=== PATIENT | female | born 1975 | race Hispanic/Latino ===

== ENCOUNTER 2017-06-02 14:03 | Emergency (ER) | payer MEDICARE ==
--- NOTE | 2017-06-02 15:15 | Emergency Department Report ---
Chief Complaint: GI Bleed Stated Complaint: RECTAL BLEEDING Time Seen by Provider: 06/02/17 14:31 - HPI History of Present Illness: Patient is a 42-year-old female who is presenting with bleeding. The original assessment from triage was that she had a GI bleed. However the patient and her sitter from the psychiatric facility of which she has come from state that she is having vaginal bleeding. Patient states that O week to 2 weeks ago she had a normal menses but is having vaginal bleeding currently. Patient has some mid abdominal cramping. Cramping is approximately a 5 out of 10 in severity. Patient denies dysuria nausea vomiting diarrhea. - Exam Vital Signs: Vital Signs 06/02/17 14:08 Temperature 98.8 F Pulse Rate 109 H Respiratory 18 Rate Blood Pressure 108/68 O2 Sat by Pulse 100 Oximetry Physical Exam: Focused physical exam patient has periumbilical abdominal tenderness MSE screening note: Focused history and physical exam performed. Due to findings the following was ordered: Because the patient is a poor historian secondary to her mental state ultrasounds have been ordered to rule out fibroids ovarian cysts ovarian torsion. CBC has also been ordered since this is her second episode of bleeding within the last month and urinalysis prior to tests been ordered as well ED Disposition for MSE Condition: Stable Referrals: NAT LOVE MD [Primary Care Provider] - 3-5 Days
[2017-06-02 15:50] LABS: Basophils % (Auto) 0.3 % (0.0-1.8); Hematocrit 28.8 % (30.3-42.9); Hemoglobin 9.7 gm/dl (10.1-14.3); Mean Corpuscular HGB Conc 34 % (30-34); Mean Corpuscular Hemoglobin 28 pg (28-32); Mean Corpuscular Volume 82 fl (79-97); Platelet Count 399 K/mm3 (140-440); Red Blood Count 3.52 M/mm3 (3.65-5.03); White Blood Count 6.8 K/mm3 (4.5-11.0)
[2017-06-02 17:09] LABS: Bacteria,Urine 1+ /HPF (Negative); Bilirubin,Urine NEG (Negative); Blood,Urine LG (Negative); Ketones,Urine NEG (Negative); Leukocyte Esterase,Urine SM (Negative); Mucus,Urine FEW /HPF; Nitrite,Urine NEG (Negative); Protein,Urine <15 mg/dL mg/dL (Negative); Urobilinogen,Urine < 2.0 mg/dL (<2.0)
--- NOTE | 2017-06-02 18:53 | Ultrasound Report ---
FINAL REPORT EXAM: US PELVIC COMPLETE HISTORY: abnl vag bleed TECHNIQUE: Ultrasound pelvis transabdominal PRIORS: None. FINDINGS: The uterus measures 8.1 x 3.0 x 3.9 centimeters Endometrial thickness is 0.7 centimeters No focal myometrial abnormality is identified Right ovary is 3.6 x 1.1 x 2.1 centimeters No abnormal mass or cyst identified The left ovary was not visualized sonographically IMPRESSION: Left ovary not identified Normal sonographic appearance of the right ovary and uterus
[2017-06-02 20:23] VITALS: BP 130/82
--- NOTE | 2017-06-02 20:29 | Emergency Department Report ---
ED Female HPI - General Chief complaint: GI Bleed Stated complaint: RECTAL BLEEDING Time Seen by Provider: 06/02/17 14:31 Source: patient Mode of arrival: Ambulatory Limitations: No Limitations - History of Present Illness Initial comments: This is a 42-year-old female accompanied by psych caregiver nontoxic, well nourished in appearance, no acute signs of distress presents to the ED with c/o of vaginal bleeding. Caregiver stated she just had a menstrual cycle and still may be having it. Denies any other complaints. Patient was screen and evaluated by Dr. Schwarz. See Dr. Schwarz HPI notes. Patient and psych caregiver denies changes of HPI. Dr. Schwarz ordered laboratory and pending. Patient is a poor historical due to psych history. Caregiver was there to help. MD Complaint: vaginal bleeding -: days(s) (2) Radiation: non-radiating Severity: mild Severity scale (0 -10): 4 Quality: cramping Consistency: constant Improves with: none Worsens with: none Are you Now?: No Associated Symptoms: denies other symptoms, vaginal bleeding. denies: vaginal discharge, abdominal pain, nausea/vomiting, fever/chills, headaches, loss of appetite, dysuria, hematuria, rash, seizure, shortness of breath, syncope, weakness - Related Data Sexually active: No Previous Rx's Medication Instructions Recorded Last Taken Type Ciprofloxacin [Ciprofloxacin ORAL 500 mg PO Q12H #14 ml 06/02/17 Unknown Rx LIQ] Allergies Allergy/AdvReac Type Severity Reaction Status Date / Time Penicillins Allergy Unknown Verified 06/02/17 14:13 Sulfa (Sulfonamide Allergy Unknown Verified 06/02/17 14:12 Antibiotics) ED Review of Systems ROS: Stated complaint: RECTAL BLEEDING Other details as noted in HPI Constitutional: denies: chills, fever Eyes: denies: eye pain, eye discharge, vision change ENT: denies: ear pain, throat pain Respiratory: denies: cough, shortness of breath, wheezing Cardiovascular: denies: chest pain, palpitations Endocrine: no symptoms reported Gastrointestinal: denies: abdominal pain, nausea, diarrhea Genitourinary: hematuria. denies: urgency, dysuria, discharge Musculoskeletal: denies: back pain, joint swelling, arthralgia Skin: denies: rash, lesions Neurological: denies: headache, weakness, paresthesias Psychiatric: denies: anxiety, depression Hematological/Lymphatic: denies: easy bleeding, easy bruising ED Past Medical Hx - Past Medical History Hx Psychiatric Treatment: Yes (schizophrenia) - Surgical History Additional Surgical History: laparoscopy - Social History Smoking Status: Never Smoker Substance Use Type: None - Medications Home Medications: Home Medications Medication Instructions Recorded Confirmed Last Taken Type Ciprofloxacin [Ciprofloxacin ORAL 500 mg PO Q12H #14 ml 06/02/17 Unknown Rx LIQ] ED Physical Exam - General Limitations: No Limitations General appearance: alert, in no apparent distress - Head Head exam: Present: atraumatic, normocephalic - Eye Eye exam: Present: normal appearance Pupils: Present: normal accommodation - ENT ENT exam: Present: normal exam, normal orophraynx, mucous membranes moist, TM's normal bilaterally, normal external ear exam - Neck Neck exam: Present: normal inspection, full ROM. Absent: tenderness, meningismus, lymphadenopathy, thyromegaly - Respiratory Respiratory exam: Present: normal lung sounds bilaterally. Absent: respiratory distress, wheezes, rales, rhonchi, stridor, chest wall tenderness, accessory muscle use, decreased breath sounds, prolonged expiratory - Cardiovascular Cardiovascular Exam: Present: regular rate, normal rhythm, normal heart sounds. Absent: irregular rhythm, systolic murmur, diastolic murmur, rubs, gallop - GI/Abdominal GI/Abdominal exam: Present: soft, normal bowel sounds. Absent: distended, tenderness, guarding, rebound, rigid, diminished bowel sounds - Expanded GI/Abdominal Exam Expanded GI/Abdominal exam: Absent: psoas sign, obturator sign, heel tap sign, Khan's sign, Rovsing's sign, tenderness at Mcburney's Point, ascites - Rectal Rectal exam: Present: deferred - External exam: Present: normal external exam, other (chaperoned Deysi refrigerator glazier present during exam). Absent: erythema, swelling, lesions, lacerations, ecchymosis, bleeding Speculum exam: Present: normal speculum exam, other (chaperoned Deysi refrigerator glazier present during exam). Absent: erythema, vaginal discharge, cervical discharge, vaginal bleeding, foreign body, tissue, laceration Bi-manual exam: Present: normal bi-manual exam, other (chaperoned Deysi refrigerator glazier present during exam). Absent: cervical motion tendernes, adnexal tenderness, adnexal mass, uterine enlargement, uterine tenderness - Extremities Exam Extremities exam: Present: normal inspection, full ROM, normal capillary refill. Absent: tenderness, pedal edema, joint swelling, calf tenderness - Back Exam Back exam: Present: normal inspection, full ROM. Absent: tenderness, CVA tenderness (R), CVA tenderness (L), muscle spasm, paraspinal tenderness, vertebral tenderness, rash noted - Neurological Exam Neurological exam: Present: alert, oriented X3, CN II-XII intact, normal gait, reflexes normal - Psychiatric Psychiatric exam: Present: normal affect, normal mood - Skin Skin exam: Present: warm, dry, intact, normal color. Absent: rash ED Course Vital Signs 06/02/17 06/02/17 14:08 20:22 Temperature 98.8 F 98.9 F Pulse Rate 109 H 114 H Respiratory 18 18 Rate Blood Pressure 108/68 Blood Pressure 130/82 [Left] O2 Sat by Pulse 100 96 Oximetry - Reevaluation(s) Reevaluation #1: 06/02/17 20:33 Patient is speaking in full sentences with no signs of distress noted. - Consultations Consultation #1: 06/02/17 20:34 Patient has been consulted with Dr. Schwarz about patient history, physical exam , and labs and examined and screened and agrees distress plan for care. ED Medical Decision Making - Lab Data Result diagrams: 06/02/17 15:33 - Medical Decision Making This is a 42-year-old female that presents with UTI. Patient is stable and was examined by me and Dr. Schwarz. Patient is screened by Dr. Schwarz. See HPI MSE Dr. Pagan noted. As per patient, no physical changes or HPI changes. UA obtained with signs of UTI. No CVA tenderness. CBC obtained. Dr. Schwarz reveiwed results and stated discharge with f/u. Ultrasound obtained and dictated by radiologist within normal limits. Patient is d/c with cipro due to allergies. Caregiver and patient was instructed Follow-up with a primary care doctor in 3-5 days or if symptoms worsen and continue return to emergency room as soon as possible. At time time of discharge, the patient does not seem toxic or ill in appearance. No acute signs of distress noted. Patient agrees to discharge treatment plan of care. No further questions noted by the patient. Critical care attestation.: If time is entered above; I have spent that time in minutes in the direct care of this critically ill patient, excluding procedure time. ED Disposition Clinical Impression: UTI (urinary tract infection) Qualifiers: Urinary tract infection type: site unspecified Hematuria presence: with hematuria Qualified Code(s): N39.0 - Urinary tract infection, site not specified ; R31.9 - Hematuria, unspecified; R31.9 - Hematuria, unspecified Disposition: TO HOME OR SELFCARE Is pt being admited?: No Does the pt Need Aspirin: No Condition: Stable Instructions: Urinary Tract Infection in Women (ED), Ciprofloxacin (By mouth) Additional Instructions: Follow-up with a primary care doctor in 3-5 days or if symptoms worsen and continue return to emergency room as soon as possible. Prescriptions: Ciprofloxacin [Ciprofloxacin ORAL LIQ] 500 mg PO Q12H #14 ml Referrals: NAT LOVE MD [Primary Care Provider] - 3-5 Days ALVARO SOLOMON MD [Staff Physician] - 3-5 Days [facility] [Outside] - 3-5 Days [facility] [Outside] - 3-5 Days
== END 2017-06-02 20:47 | disposition home or self-care (01) ==
LOC: ED 14:03
DX: N39.0 Urinary tract infection, site not specified (principal); Z88.0 Allergy status to penicillin; Z88.2 Allergy status to sulfonamides
CPT/HCPCS: 36415; 76856; 81001; 81025; 85025; 99284

== ENCOUNTER 2017-06-08 13:28 | Inpatient (IN) | payer MEDICARE ==
[2017-06-08 16:41] LABS: Eosinophils % (Auto) 3.2 % (0.0-4.3); Hematocrit 26.2 % (30.3-42.9); Hemoglobin 8.4 gm/dl (10.1-14.3); Mean Corpuscular HGB Conc 32 % (30-34); Mean Corpuscular Hemoglobin 26 pg (28-32); Platelet Count 432 K/mm3 (140-440); Red Blood Count 3.17 M/mm3 (3.65-5.03); Red Cell Distribution Width 16.2 % (13.2-15.2); White Blood Count 6.9 K/mm3 (4.5-11.0)
[2017-06-08 16:48] LABS: Basophils % (Auto) 1.3 % (0.0-1.8); Diff Status Complete; Mean Corpuscular Volume 83 fl (79-97)
[2017-06-08 17:08] LABS: Chloride 100.8 mmol/L (98-107); Potassium 3.4 mmol/L (3.6-5.0); Sodium 141 mmol/L (137-145)
[2017-06-08 17:09] LABS: Alanine Aminotransferase 10 units/L (7-56); Albumin 2.3 g/dL (3.9-5); Albumin/Globulin Ratio 0.7 %; Alkaline Phosphatase 77 units/L (35-129); Anion Gap 18 mmol/L; BUN/Creatinine Ratio 15; Bilirubin,Total < 0.20 mg/dL (0.1-1.2); Blood Urea Nitrogen 12 mg/dL (7-17); Calcium 7.8 mg/dL (8.4-10.2); Carbon Dioxide 26 mmol/L (22-30); Glucose 102 mg/dL (65-100); Total Protein 5.7 g/dL (6.3-8.2)
[2017-06-08] MEDS ORDERED: NACL 0.9% 1000 ML 1,000 ML IV ONE (22:45)
[2017-06-08] MEDS ORDERED: K-DUR PO ONE (22:46)
--- NOTE | 2017-06-08 23:00 | Emergency Department Report ---
ED Female HPI - General Chief complaint: Vaginal Bleeding Stated complaint: VAGINAL BLEEDING Time Seen by Provider: 06/08/17 22:12 Source: patient Mode of arrival: Ambulatory Limitations: No Limitations - History of Present Illness Initial comments: 42 yo female with the past medical history of schizophrenia presents to the hospital with vaginal bleeding for a couple of days. Patient has periods of light flow intermixed with heavy vaginal flow of blood. Patient was seen and evaluated here on the for the same and had unremarkable ultrasound. As per exam no blood was noted in the vagina and patient was sent back to [place] with diagnosis of UTI. Bleeding has continued, H&H has decreased, therefore patient was sent to the ER for further evaluation. Patient denies rectal bleeding. Patient states he takes Q3 months and thinks she is overdue for another shot. - Related Data Previous Rx's Medication Instructions Recorded Last Taken Type Ciprofloxacin [Ciprofloxacin ORAL 500 mg PO Q12H #14 ml 06/02/17 Unknown Rx LIQ] Allergies Allergy/AdvReac Type Severity Reaction Status Date / Time Penicillins Allergy Unknown Verified 06/08/17 13:40 Sulfa (Sulfonamide Allergy Unknown Verified 06/08/17 13:40 Antibiotics) ED Review of Systems ROS: Stated complaint: VAGINAL BLEEDING Other details as noted in HPI Comment: All other systems reviewed and negative Other: Constitutional: No fevers chills Eyes: No eye pain visual changes ENT: No ear pain or throat pain Neck: Denies pain Respiratory: Denies cough wheezing shortness of breath Cardiovascular: Denies chest pain, palpitations, syncope GI: Denies abdominal pain : Denies dysuria Musculoskeletal: Denies back pain Skin: Denies rash, lesions, erythema Neurologic: Denies headache, numbness, weakness Psychiatric: Denies suicidal ideation, hallucinations ED Past Medical Hx - Past Medical History Previous Medical History?: Yes Hx Psychiatric Treatment: Yes (schizophrenia) - Surgical History Past Surgical History?: Yes Additional Surgical History: laparoscopy - Social History Smoking Status: Never Smoker Substance Use Type: None - Medications Home Medications: Home Medications Medication Instructions Recorded Confirmed Last Taken Type Ciprofloxacin [Ciprofloxacin ORAL 500 mg PO Q12H #14 ml 06/02/17 Unknown Rx LIQ] ED Physical Exam - General Limitations: No Limitations - Other Other exam information: General: No limitations, patient is alert in no acute distress Head exam: Atraumatic, normocephalic Eyes exam: Normal appearance, ENT: Moist mucous membrane, normal oropharynx Neck exam: Normal inspection, full range of motion, no meningismus nontender Respiratory exam: Clear to auscultation bilateral, no wheezes, rales, crackles Cardiovascular: Normal rate and rhythm, normal heart sounds Abdomen: Soft, nondistended, and nontender, with normal bowel sounds, no rebound, or guarding : no blood in the vag vault, no cmt or adenxal tenderness rectal: External hemorrhoid noted at 7 o'clock position with a visible clot at the site. No active bleeding but dry blood noted at anal opening. Hemorrhoid tissue pink. Rectal exam has brown stool without melena. Guaiac positive likely secondary to blood present anal area Extremity: Full range of motion normal inspection no deformity Back: Normal Inspection, full range of motion, no tenderness Neurologic: Alert, oriented x3, cranial nerves intact, no motor or sensory deficit Psychiatric: normal affect, normal mood Skin: Warm, dry, intact ED Course Vital Signs 06/08/17 06/08/17 06/09/17 13:40 17:52 00:33 Temperature 98.2 F 99.4 F Pulse Rate 119 H 123 H Respiratory 18 14 16 Rate Blood Pressure 110/62 Blood Pressure 119/73 [Right] O2 Sat by Pulse 99 100 99 Oximetry - Reevaluation(s) Reevaluation #1: 06/08/17 23:29 ivf, ekg pending - Consultations Consultation #1: 06/08/17 23:29 case d/w Dr Grider, rec bowel prep for flex sig. will consult ED Medical Decision Making - Lab Data Result diagrams: 06/08/17 13:58 06/08/17 13:58 Lab Results 06/08/17 06/08/17 06/08/17 Range/Units 13:58 13:58 13:58 WBC 6.9 (4.5-11.0) K/mm3 RBC 3.17 L (3.65-5.03) M/mm3 Hgb 8.4 L (10.1-14.3) gm/dl Hct 26.2 L (30.3-42.9) % MCV 83 (79-97) fl MCH 26 L (28-32) pg MCHC 32 (30-34) % RDW 16.2 H (13.2-15.2) % Plt Count 432 (140-440) K/mm3 Lymph % (Auto) 20.0 (13.4-35.0) % [place] % (Auto) 9.4 H (0.0-7.3) % Eos % (Auto) 3.2 (0.0-4.3) % Baso % (Auto) 1.3 (0.0-1.8) % Lymph # 1.4 (1.2-5.4) K/mm3 [place] # 0.6 (0.0-0.8) K/mm3 Eos # 0.2 (0.0-0.4) K/mm3 Baso # 0.1 (0.0-0.1) K/mm3 Add Manual Diff Complete Seg Neutrophils % 66.1 (40.0-70.0) % Seg Neutrophils # 4.5 (1.8-7.7) K/mm3 Sodium 141 (137-145) mmol/L Potassium 3.4 L (3.6-5.0) mmol/L Chloride 100.8 (98-107) mmol/L Carbon Dioxide 26 (22-30) mmol/L Anion Gap 18 mmol/L BUN 12 (7-17) mg/dL Creatinine 0.8 (0.7-1.2) mg/dL Estimated GFR > 60 ml/min BUN/Creatinine Ratio 15 % Glucose 102 H (65-100) mg/dL Calcium 7.8 L (8.4-10.2) mg/dL Total Bilirubin < 0.20 (0.1-1.2) mg/dL AST 10 (5-40) units/L ALT 10 (7-56) units/L Alkaline Phosphatase 77 (35-129) units/L Total Protein 5.7 L (6.3-8.2) g/dL Albumin 2.3 L (3.9-5) g/dL Albumin/Globulin Ratio 0.7 % HCG, Qual Negative (Negative) Blood Type Antibody Screen 06/08/17 Range/Units 18:00 WBC (4.5-11.0) K/mm3 RBC (3.65-5.03) M/mm3 Hgb (10.1-14.3) gm/dl Hct (30.3-42.9) % MCV (79-97) fl MCH (28-32) pg MCHC (30-34) % RDW (13.2-15.2) % Plt Count (140-440) K/mm3 Lymph % (Auto) (13.4-35.0) % [place] % (Auto) (0.0-7.3) % Eos % (Auto) (0.0-4.3) % Baso % (Auto) (0.0-1.8) % Lymph # (1.2-5.4) K/mm3 [place] # (0.0-0.8) K/mm3 Eos # (0.0-0.4) K/mm3 Baso # (0.0-0.1) K/mm3 Add Manual Diff Seg Neutrophils % (40.0-70.0) % Seg Neutrophils # (1.8-7.7) K/mm3 Sodium (137-145) mmol/L Potassium (3.6-5.0) mmol/L Chloride (98-107) mmol/L Carbon Dioxide (22-30) mmol/L Anion Gap mmol/L BUN (7-17) mg/dL Creatinine (0.7-1.2) mg/dL Estimated GFR ml/min BUN/Creatinine Ratio % Glucose (65-100) mg/dL Calcium (8.4-10.2) mg/dL Total Bilirubin (0.1-1.2) mg/dL AST (5-40) units/L ALT (7-56) units/L Alkaline Phosphatase (35-129) units/L Total Protein (6.3-8.2) g/dL Albumin (3.9-5) g/dL Albumin/Globulin Ratio % HCG, Qual (Negative) Blood Type O POSITIVE Antibody Screen Negative - EKG Data -: EKG Interpreted by Me EKG shows normal: sinus rhythm, axis (64), QRS complexes (68), ST-T waves (no stemi/t inv) Rate: tachycardia (103) - EKG Data When compared to previous EKG there are: no significant change - Medical Decision Making plan to admit pt for gi evaluation for drop in H/H and possible bleeding hemorrhoid - Differential Diagnosis rectal bleeding, vag bleeding, hemorrhoid, diverticulosis Critical Care Time: No Critical care attestation.: If time is entered above; I have spent that time in minutes in the direct care of this critically ill patient, excluding procedure time. ED Disposition Clinical Impression: Acute hemorrhoid, Rectal bleeding, Schizophrenia, Anemia Disposition: -09 OP ADMIT IP TO THIS HOSP Is pt being admited?: Yes Condition: Stable Time of Disposition: 23:30 (Dr Watson/hosp)
[2017-06-08] MEDS ORDERED: GOLYTELY PO ONE (23:27)
--- NOTE | 2017-06-08 23:59 | History and Physical Report ---
History of Present Illness Date of examination: 06/08/17 History of present illness: 42-year-old woman with a history of bipolar, schizophrenia was brought to the emergency room from [place] for rectal bleed. She was seen here on the of this month for similar complaint. History is per the nursing education consultant at bedside, very difficult to obtain a history from the patient, in addition she denies rectal bleed. A review of systems unobtainable PAST MEDICAL HISTORY:bipolar, schizophrenia PAST SURGICAL HISTORY: None FAMILY HISTORY: Unknown SOCIAL HISTORY: No alcohol, tobacco, drugs Medications and Allergies Allergies Allergy/AdvReac Type Severity Reaction Status Date / Time Penicillins Allergy Unknown Verified 06/08/17 13:40 Sulfa (Sulfonamide Allergy Unknown Verified 06/08/17 13:40 Antibiotics) Home Medications Medication Instructions Recorded Confirmed Last Taken Type Ciprofloxacin [Ciprofloxacin ORAL 500 mg PO Q12H #14 ml 06/02/17 Unknown Rx LIQ] Exam - Physical Exam Narrative exam: Gen. appearance: Patient lying in bed in no acute distress HEENT: Normocephalic/atraumatic, pupils equal round reactive to light, extra occular movement intact, no scleral icterus, no JVD or thyromegaly or nodule, neck is supple, mucous membrane moist, no erythema or exudate Heart: S1-S2, regular rate and rhythm Lungs: Clear to auscultation bilateral breathing comfortable Abdomen: Positive bowel sounds, nontender, nondistended, no organomegaly Extremities: No edema, cyanosis, clubbing Neuro:: Oriented 3 , cranial nerves II-12 intact, speech, motor intact Skin: No rash, nodules, warm dry - Constitutional Vitals: Temp Pulse Resp BP Pulse Ox 99.4 F 123 H 14 119/73 100 06/08/17 17:52 06/08/17 17:52 06/08/17 17:52 06/08/17 17:52 06/08/17 17:52 Results - Labs CBC & Chem 7: 06/08/17 13:58 06/08/17 13:58 Labs: Abnormal lab results 06/08/17 06/08/17 Range/Units 13:58 13:58 RBC 3.17 L (3.65-5.03) M/mm3 Hgb 8.4 L (10.1-14.3) gm/dl Hct 26.2 L (30.3-42.9) % MCH 26 L (28-32) pg RDW 16.2 H (13.2-15.2) % [place] % (Auto) 9.4 H (0.0-7.3) % Potassium 3.4 L (3.6-5.0) mmol/L Glucose 102 H (65-100) mg/dL Calcium 7.8 L (8.4-10.2) mg/dL Total Protein 5.7 L (6.3-8.2) g/dL Albumin 2.3 L (3.9-5) g/dL Assessment and Plan Assessment Rectal bleed Bipolar Schizophrenia Plan Admit to medicine Consult GI who recommended to start bowel prep for colonoscopy tomorrow DVT prophylaxis
[2017-06-09] MEDS ORDERED: ZOFRAN IV PRN (00:49)
[2017-06-09] MEDS ORDERED: WATER FOR IRRIG STERILE IR ONE (07:36)
[2017-06-09] MEDS ORDERED: WATER FOR IRRIG STERILE ONE (07:37)
[2017-06-09 13:21] LABS: Bacteria,Urine 1+ /HPF (Negative); Mucus,Urine FEW /HPF
[2017-06-09 13:25] LABS: Bilirubin,Urine Negative (Negative)
[2017-06-09 13:26] LABS: Blood,Urine Negative (Negative); Ketones,Urine 25 mg/dL (Negative)
[2017-06-09 13:27] LABS: Leukocyte Esterase,Urine Negative (Negative); Nitrite,Urine Negative (Negative); Protein,Urine <15 mg/dL mg/dL (Negative); Urobilinogen,Urine < 2.0 mg/dL (<2.0)
[2017-06-09] MEDS: TYLENOL PO PRN (14:47)
[2017-06-09] MEDS ORDERED: DULCOLAX PO ONE (16:00)
--- NOTE | 2017-06-09 16:31 | Gastroenterology Consultation ---
History of Present Illness - Reason for Consult Consult date: 06/09/17 hematochezia Requesting physician: FRANCISCA DYER - History of Present Illness Ms Goel is a 42 yo wf with h/o schizophrenia who presents from assisted with rectal vs vaginal bleeding. Patient had recent similar ED arrival for suspected vaginal bleeding. She was d/c with abx for suspected UTI but presented again due to further bleeding episodes. She feels the bleeding is vaginal, however blood was seen during rectal exam by ED attending. She drank less then half of bowel prep overnight and reports having brown solid stool. She denies abd pain. Pt is a poor historian, unclear extent of psychiatric disease, and reliability of history. She reports she is supposed to see a GI physician in her home town, and she is reluctant to complete bowel prep for a colonoscopy (she does not feel she needs to had the prep in order for procedure to be done). She denies family h/o colon cancer. Past History Past Medical History: other (schizophrenia, anemia) Social history: denies: smoking, alcohol abuse Family history: no significant family history Medications and Allergies Allergies Allergy/AdvReac Type Severity Reaction Status Date / Time Penicillins Allergy Unknown Verified 06/08/17 13:40 Sulfa (Sulfonamide Allergy Unknown Verified 06/08/17 13:40 Antibiotics) Home Medications Medication Instructions Recorded Confirmed Last Taken Type Ciprofloxacin [Ciprofloxacin ORAL 500 mg PO Q12H #14 ml 06/02/17 Unknown Rx LIQ] Active Meds: Active Medications Acetaminophen (Tylenol) 650 mg PO Q4H PRN PRN Reason: Pain MILD(1-3)/Fever >100.5/MCGARRY Last Admin: 06/09/17 14:47 Dose: 650 mg Ondansetron HCl (Zofran) 4 mg IV Q8H PRN PRN Reason: N/V unrelieved by Reglan Polyethylene Glycol/Electrolytes (Golytely) 4,000 ml PO ONCE ONE Stop: 06/09/17 17:01 Review of Systems - Review of Systems ROS unobtainable: due to mental status Exam - Constitutional Vital Signs: Temp Pulse Resp BP Pulse Ox 99.6 F 99 H 18 107/64 98 06/09/17 16:12 06/09/17 16:12 06/09/17 16:12 06/09/17 16:12 06/09/17 16:12 General appearance: no acute distress - EENT Eyes: PERRL, EOM intact - Respiratory Respiratory effort: normal Respiratory: bilateral: CTA - Cardiovascular Rhythm: regular Heart Sounds: Present: S1 & S2 - Gastrointestinal General gastrointestinal: Present: soft, non-tender - Labs CBC & Chem 7: 06/08/17 13:58 06/08/17 13:58 Lab Results: Laboratory Results - last 24 hr 06/08/17 06/08/17 06/08/17 13:58 13:58 13:58 WBC 6.9 RBC 3.17 L Hgb 8.4 L Hct 26.2 L MCV 83 MCH 26 L MCHC 32 RDW 16.2 H Plt Count 432 Lymph % (Auto) 20.0 [place] % (Auto) 9.4 H Eos % (Auto) 3.2 Baso % (Auto) 1.3 Lymph # 1.4 [place] # 0.6 Eos # 0.2 Baso # 0.1 Add Manual Diff Complete Seg Neutrophils % 66.1 Seg Neutrophils # 4.5 Sodium 141 Potassium 3.4 L Chloride 100.8 Carbon Dioxide 26 Anion Gap 18 BUN 12 Creatinine 0.8 Estimated GFR > 60 BUN/Creatinine Ratio 15 Glucose 102 H Calcium 7.8 L Iron TIBC % Saturation Transferrin Total Bilirubin < 0.20 AST 10 ALT 10 Alkaline Phosphatase 77 Total Protein 5.7 L Albumin 2.3 L Albumin/Globulin Ratio 0.7 HCG, Qual Negative Urine Color Urine Turbidity Urine pH Ur Specific [place] Urine Protein Urine Glucose (UA) Urine Ketones Urine Blood Urine Nitrite Ur Reducing Substances Urine Bilirubin Urine Ictotest Urine Urobilinogen Ur Leukocyte Esterase Urine WBC (Auto) Urine RBC (Auto) U Epithel Cells (Auto) Urine Bacteria (Auto) Urine Mucus Blood Type Antibody Screen 06/08/17 06/08/17 06/09/17 18:00 23:08 Unknown WBC RBC Hgb Hct MCV MCH MCHC RDW Plt Count Lymph % (Auto) [place] % (Auto) Eos % (Auto) Baso % (Auto) Lymph # [place] # Eos # Baso # Add Manual Diff Seg Neutrophils % Seg Neutrophils # Sodium Potassium Chloride Carbon Dioxide Anion Gap BUN Creatinine Estimated GFR BUN/Creatinine Ratio Glucose Calcium Iron 12 L TIBC 137 L % Saturation 8.76 Transferrin 128 L Total Bilirubin AST ALT Alkaline Phosphatase Total Protein Albumin Albumin/Globulin Ratio HCG, Qual Urine Color Straw Urine Turbidity Clear Urine pH 8.0 H Ur Specific [place] 1.010 Urine Protein <15 mg/dl Urine Glucose (UA) Negative Urine Ketones 25 Urine Blood Negative Urine Nitrite Negative Ur Reducing Substances Not Reportable Urine Bilirubin Negative Urine Ictotest Not Reportable Urine Urobilinogen < 2.0 Ur Leukocyte Esterase Negative Urine WBC (Auto) 1.0 Urine RBC (Auto) 1.0 U Epithel Cells (Auto) 3.0 Urine Bacteria (Auto) 1+ Urine Mucus Few Blood Type O POSITIVE Antibody Screen Negative Assessment and Plan 1. hematochezia 2. Anemia -prep this evening if pt is agreeable. colonoscopy tomorrow if she is able to complete prep and is willing to have procedure done (states she would like to think about it).
[2017-06-09] MEDS ORDERED: GOLYTELY PO ONE (17:00)
--- NOTE | 2017-06-09 17:08 | Progress Note ---
Assessment and Plan Assessment and plan: 42-year-old female sent from [place] for rectal bleeding Rectal bleeding Anemia Schizophrenia - Colonoscopy was not finished because of poor GI. 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 She is asking to eat. Hospitalist Physical - Physical exam Narrative exam: Not in cardiopulmonary distress. The patient appeared well nourished and normally developed. Vital signs as documented. Head exam is unremarkable. No scleral icterus . Neck is without jugular venous distension, thyromegaly, or carotid bruits. Lungs are clear to auscultation. Cardiac exam reveals regular rate and Rhythm. First and second heart sounds normal. No murmurs, rubs or gallops. Abdominal exam reveals normal bowel sounds, no masses, no organomegaly and no aortic enlargement. Extremities are nonedematous and both femoral and pedal pulses are normal. MARINE CARGO SPECIALIST: Alert and oriented 3. No focal weakness. - Constitutional Vitals: Temp Pulse Resp BP Pulse Ox 99.6 F 99 H 18 107/64 98 06/09/17 16:12 06/09/17 16:12 06/09/17 16:12 06/09/17 16:12 06/09/17 16:12 Results - Labs CBC & Chem 7: 06/08/17 13:58 06/08/17 13:58 Labs: Laboratory Last Values WBC 6.9 K/mm3 (4.5-11.0) 06/08/17 13:58 RBC 3.17 M/mm3 (3.65-5.03) L 06/08/17 13:58 Hgb 8.4 gm/dl (10.1-14.3) L 06/08/17 13:58 Hct 26.2 % (30.3-42.9) L 06/08/17 13:58 MCV 83 fl (79-97) 06/08/17 13:58 MCH 26 pg (28-32) L 06/08/17 13:58 MCHC 32 % (30-34) 06/08/17 13:58 RDW 16.2 % (13.2-15.2) H 06/08/17 13:58 Plt Count 432 K/mm3 (140-440) 06/08/17 13:58 Lymph % (Auto) 20.0 % (13.4-35.0) 06/08/17 13:58 [place] % (Auto) 9.4 % (0.0-7.3) H 06/08/17 13:58 Eos % (Auto) 3.2 % (0.0-4.3) 06/08/17 13:58 Baso % (Auto) 1.3 % (0.0-1.8) 06/08/17 13:58 Lymph # 1.4 K/mm3 (1.2-5.4) 06/08/17 13:58 [place] # 0.6 K/mm3 (0.0-0.8) 06/08/17 13:58 Eos # 0.2 K/mm3 (0.0-0.4) 06/08/17 13:58 Baso # 0.1 K/mm3 (0.0-0.1) 06/08/17 13:58 Add Manual Diff Complete 06/08/17 13:58 Seg Neutrophils % 66.1 % (40.0-70.0) 06/08/17 13:58 Seg Neutrophils # 4.5 K/mm3 (1.8-7.7) 06/08/17 13:58 Sodium 141 mmol/L (137-145) 06/08/17 13:58 Potassium 3.4 mmol/L (3.6-5.0) L 06/08/17 13:58 Chloride 100.8 mmol/L (98-107) 06/08/17 13:58 Carbon Dioxide 26 mmol/L (22-30) 06/08/17 13:58 Anion Gap 18 mmol/L 06/08/17 13:58 BUN 12 mg/dL (7-17) 06/08/17 13:58 Creatinine 0.8 mg/dL (0.7-1.2) 06/08/17 13:58 Estimated GFR > 60 ml/min 06/08/17 13:58 BUN/Creatinine Ratio 15 % 06/08/17 13:58 Glucose 102 mg/dL (65-100) H 06/08/17 13:58 Calcium 7.8 mg/dL (8.4-10.2) L 06/08/17 13:58 Iron 12 ug/dL (37-170) L 06/08/17 23:08 TIBC 137 mcg/dL (250-450) L 06/08/17 23:08 % Saturation 8.76 % 06/08/17 23:08 Transferrin 128 mg/dl (192-382) L 06/08/17 23:08 Total Bilirubin < 0.20 mg/dL (0.1-1.2) 06/08/17 13:58 AST 10 units/L (5-40) 06/08/17 13:58 ALT 10 units/L (7-56) 06/08/17 13:58 Alkaline Phosphatase 77 units/L (35-129) 06/08/17 13:58 Total Protein 5.7 g/dL (6.3-8.2) L 06/08/17 13:58 Albumin 2.3 g/dL (3.9-5) L 06/08/17 13:58 Albumin/Globulin Ratio 0.7 % 06/08/17 13:58 HCG, Qual Negative (Negative) 06/08/17 13:58 Urine Color Straw (Yellow) 06/09/17 Unknown Urine Turbidity Clear (Clear) 06/09/17 Unknown Urine pH 8.0 (5.0-7.0) H 06/09/17 Unknown Ur Specific [place] 1.010 (1.003-1.030) 06/09/17 Unknown Urine Protein <15 mg/dl mg/dL (Negative) 06/09/17 Unknown Urine Glucose (UA) Negative mg/dL (Negative) 06/09/17 Unknown Urine Ketones 25 mg/dL (Negative) 06/09/17 Unknown Urine Blood Negative (Negative) 06/09/17 Unknown Urine Nitrite Negative (Negative) 06/09/17 Unknown Ur Reducing Substances Not Reportable 06/09/17 Unknown Urine Bilirubin Negative (Negative) 06/09/17 Unknown Urine Ictotest Not Reportable 06/09/17 Unknown Urine Urobilinogen < 2.0 mg/dL (<2.0) 06/09/17 Unknown Ur Leukocyte Esterase Negative (Negative) 06/09/17 Unknown Urine WBC (Auto) 1.0 /HPF (0.0-6.0) 06/09/17 Unknown Urine RBC (Auto) 1.0 /HPF (0.0-6.0) 06/09/17 Unknown U Epithel Cells (Auto) 3.0 /HPF (0-13.0) 06/09/17 Unknown Urine Bacteria (Auto) 1+ /HPF (Negative) 06/09/17 Unknown Urine Mucus Few /HPF 06/09/17 Unknown Blood Type O POSITIVE 06/08/17 18:00 Antibody Screen Negative 06/08/17 18:00
[2017-06-10] MEDS: TYLENOL PO PRN (08:02)
--- NOTE | 2017-06-10 10:15 | Query- Nutrition ---
Ramírez Butterfield__Rafael Date:___06/10/2017 Rough And Trueing Machine Operator/CDS:__Argelia Phone#:___[phone] Exercise your independent professional judgment when responding to query. Questions asked do not imply a particular answer is desired or expected. We greatly appreciate your clarification on this issue. Clinical Documentation States: 42 Year old female was admitted on 06/08/2017 for rectal bleed. Clinical Findings Show: Albumin: 2.3 Please select the most appropriate option 3 [] Mild Malnutrition [] Mild - Moderate Malnutrition [x] Moderate - Severe Malnutrition [] Severe Malnutrition Serum Albumin 2.8 to 3.4 g/dl or Pre-albumin 5 to 17 mg/dl1,2 Inadequate nutritional intake1,2,3,4 NPO > 5 days Weight loss: 5% in 1 month or 7.5% in 3 months or 10% in 6 months1, 3,4 BMI 16 to 18.4 or Weight <90% of ideal body weight1,2,3,4 Serum Albumin < 2.8 g/ dl1,2 Lymphocytes < 1500/ L2 Inadequate nutritional intake3, high stress e.g. major trauma, sepsis,pancreatitis, huggins etc. Decubitus ulcers1,2, , skin breakdown2, easy hair pluckability2 Weight <80% standard for height2 Triceps skin fold <3 mm2 Mid-arm muscle circumference <15 cm2 Creatinine-height index <60% standard2 [ ] Cachexia [ ] Emaciated w/Malnutrition [ ] Other: [ ] Unable to determine [ ] Comment/Explanation: Present on Admission: [ x] Yes (Y) [ ] Clinically undeterminable (W) [ ] No (N) Please also document response in your Progress Notes and/or Discharge Summary and indicate if the condition was present on admission. MTDD
[2017-06-10 10:36] LABS: Basophils % (Auto) 0.6 % (0.0-1.8); Eosinophils % (Auto) 2.7 % (0.0-4.3); Hemoglobin 7.8 gm/dl (10.1-14.3); Mean Corpuscular HGB Conc 33 % (30-34); Mean Corpuscular Hemoglobin 27 pg (28-32); Mean Corpuscular Volume 82 fl (79-97); Platelet Count 436 K/mm3 (140-440); Red Blood Count 2.95 M/mm3 (3.65-5.03); Red Cell Distribution Width 16.1 % (13.2-15.2); White Blood Count 6.2 K/mm3 (4.5-11.0)
[2017-06-10 10:51] LABS: Anion Gap 17 mmol/L; BUN/Creatinine Ratio 12; Blood Urea Nitrogen 7 mg/dL (7-17); Calcium 7.7 mg/dL (8.4-10.2); Carbon Dioxide 22 mmol/L (22-30); Glucose 96 mg/dL (65-100); Potassium 3.4 mmol/L (3.6-5.0); Sodium 137 mmol/L (137-145)
[2017-06-10] MEDS ORDERED: K-DUR PO ONE (14:06)
--- NOTE | 2017-06-10 14:06 | Progress Note ---
Assessment and Plan Assessment and plan: 42-year-old female sent from [place] for rectal bleeding Rectal bleeding Anemia Schizophrenia - Colonoscopy was not finished because of poor GI. 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 She is asking to eat. Hospitalist Physical - Physical exam Narrative exam: Not in cardiopulmonary distress. The patient appeared well nourished and normally developed. Vital signs as documented. Head exam is unremarkable. No scleral icterus . Neck is without jugular venous distension, thyromegaly, or carotid bruits. Lungs are clear to auscultation. Cardiac exam reveals regular rate and Rhythm. First and second heart sounds normal. No murmurs, rubs or gallops. Abdominal exam reveals normal bowel sounds, no masses, no organomegaly and no aortic enlargement. Extremities are nonedematous and both femoral and pedal pulses are normal. LOUVER MORTISER OPERATOR: Alert and oriented 3. No focal weakness. - Constitutional Vitals: Temp Pulse Resp BP Pulse Ox 98.3 F 127 H 18 102/67 97 06/10/17 08:20 06/10/17 08:20 06/10/17 08:20 06/10/17 08:20 06/10/17 08:20 Results - Labs CBC & Chem 7: 06/10/17 10:10 06/10/17 10:10 Labs: Laboratory Last Values WBC 6.2 K/mm3 (4.5-11.0) 06/10/17 10:10 RBC 2.95 M/mm3 (3.65-5.03) L 06/10/17 10:10 Hgb 7.8 gm/dl (10.1-14.3) L 06/10/17 10:10 Hct 24.0 % (30.3-42.9) L 06/10/17 10:10 MCV 82 fl (79-97) 06/10/17 10:10 MCH 27 pg (28-32) L 06/10/17 10:10 MCHC 33 % (30-34) 06/10/17 10:10 RDW 16.1 % (13.2-15.2) H 06/10/17 10:10 Plt Count 436 K/mm3 (140-440) 06/10/17 10:10 Lymph % (Auto) 26.0 % (13.4-35.0) 06/10/17 10:10 [place] % (Auto) 7.9 % (0.0-7.3) H 06/10/17 10:10 Eos % (Auto) 2.7 % (0.0-4.3) 06/10/17 10:10 Baso % (Auto) 0.6 % (0.0-1.8) 06/10/17 10:10 Lymph # 1.6 K/mm3 (1.2-5.4) 06/10/17 10:10 Bent # 0.5 K/mm3 (0.0-0.8) 06/10/17 10:10 Eos # 0.2 K/mm3 (0.0-0.4) 06/10/17 10:10 Baso # 0.0 K/mm3 (0.0-0.1) 06/10/17 10:10 Add Manual Diff Complete 06/08/17 13:58 Seg Neutrophils % 62.8 % (40.0-70.0) 06/10/17 10:10 Seg Neutrophils # 3.9 K/mm3 (1.8-7.7) 06/10/17 10:10 Sodium 137 mmol/L (137-145) 06/10/17 10:10 Potassium 3.4 mmol/L (3.6-5.0) L 06/10/17 10:10 Chloride 101.0 mmol/L (98-107) 06/10/17 10:10 Carbon Dioxide 22 mmol/L (22-30) 06/10/17 10:10 Anion Gap 17 mmol/L 06/10/17 10:10 BUN 7 mg/dL (7-17) 06/10/17 10:10 Creatinine 0.6 mg/dL (0.7-1.2) L 06/10/17 10:10 Estimated GFR > 60 ml/min 06/10/17 10:10 BUN/Creatinine Ratio 12 % 06/10/17 10:10 Glucose 96 mg/dL (65-100) 06/10/17 10:10 Calcium 7.7 mg/dL (8.4-10.2) L 06/10/17 10:10 Iron 12 ug/dL (37-170) L 06/08/17 23:08 TIBC 137 mcg/dL (250-450) L 06/08/17 23:08 % Saturation 8.76 % 06/08/17 23:08 Transferrin 128 mg/dl (192-382) L 06/08/17 23:08 Total Bilirubin < 0.20 mg/dL (0.1-1.2) 06/08/17 13:58 AST 10 units/L (5-40) 06/08/17 13:58 ALT 10 units/L (7-56) 06/08/17 13:58 Alkaline Phosphatase 77 units/L (35-129) 06/08/17 13:58 Total Protein 5.7 g/dL (6.3-8.2) L 06/08/17 13:58 Albumin 2.3 g/dL (3.9-5) L 06/08/17 13:58 Albumin/Globulin Ratio 0.7 % 06/08/17 13:58 HCG, Qual Negative (Negative) 06/08/17 13:58 Urine Color Straw (Yellow) 06/09/17 Unknown Urine Turbidity Clear (Clear) 06/09/17 Unknown Urine pH 8.0 (5.0-7.0) H 06/09/17 Unknown Ur Specific [place] 1.010 (1.003-1.030) 06/09/17 Unknown Urine Protein <15 mg/dl mg/dL (Negative) 06/09/17 Unknown Urine Glucose (UA) Negative mg/dL (Negative) 06/09/17 Unknown Urine Ketones 25 mg/dL (Negative) 06/09/17 Unknown Urine Blood Negative (Negative) 06/09/17 Unknown Urine Nitrite Negative (Negative) 06/09/17 Unknown Ur Reducing Substances Not Reportable 06/09/17 Unknown Urine Bilirubin Negative (Negative) 06/09/17 Unknown Urine Ictotest Not Reportable 06/09/17 Unknown Urine Urobilinogen < 2.0 mg/dL (<2.0) 06/09/17 Unknown Ur Leukocyte Esterase Negative (Negative) 06/09/17 Unknown Urine WBC (Auto) 1.0 /HPF (0.0-6.0) 06/09/17 Unknown Urine RBC (Auto) 1.0 /HPF (0.0-6.0) 06/09/17 Unknown U Epithel Cells (Auto) 3.0 /HPF (0-13.0) 06/09/17 Unknown Urine Bacteria (Auto) 1+ /HPF (Negative) 06/09/17 Unknown Urine Mucus Few /HPF 06/09/17 Unknown Blood Type O POSITIVE 06/08/17 18:00 Antibody Screen Negative 06/08/17 18:00
--- NOTE | 2017-06-10 22:46 | Gastroenterology Progress Note ---
Assessment and Plan Hematochezia - also with menorrhagia; no further signs of rectal bleeding today. pt did not complete prep and current under going psychiatry evaluation ( refusing procedure as well). will sign off, call back as needed or with questions. Subjective Date of service: 06/10/17 Principal diagnosis: hematochezia Interval history: pt did not complete prep overnight and refused colonoscopy today. no reported hematochezia episodes today. Objective - Constitutional Vitals: Temp Pulse Resp BP Pulse Ox 98.8 F 108 H 18 109/66 97 06/10/17 16:12 06/10/17 15:51 06/10/17 16:12 06/10/17 15:51 06/10/17 15:52 General appearance: no acute distress - Respiratory Respiratory: bilateral: CTA - Cardiovascular Rhythm: regular Heart Sounds: Present: S1 & S2 - Gastrointestinal General gastrointestinal: Present: soft, non-tender, non-distended - Labs CBC & Chem 7: 06/10/17 10:10 06/10/17 10:10 Labs: Laboratory Results - last 24 hr 06/10/17 06/10/17 10:10 10:10 WBC 6.2 RBC 2.95 L Hgb 7.8 L Hct 24.0 L MCV 82 MCH 27 L MCHC 33 RDW 16.1 H Plt Count 436 Lymph % (Auto) 26.0 [place] % (Auto) 7.9 H Eos % (Auto) 2.7 Baso % (Auto) 0.6 Lymph # 1.6 [place] # 0.5 Eos # 0.2 Baso # 0.0 Seg Neutrophils % 62.8 Seg Neutrophils # 3.9 Sodium 137 Potassium 3.4 L Chloride 101.0 Carbon Dioxide 22 Anion Gap 17 BUN 7 Creatinine 0.6 L Estimated GFR > 60 BUN/Creatinine Ratio 12 Glucose 96 Calcium 7.7 L
--- NOTE | 2017-06-11 06:46 | Discharge Summary ---
Providers - Providers Date of Admission: 06/08/17 23:59 Date of discharge: 06/11/17 Attending physician: SUPRIYA BONILLA MD 06/08/17 23:26 Consult to Physician [CONS] Urgent Consulting Provider: LAVONNE REYNOSO Reason For Exam: rectal bleeding, possible thrombosed hemorrhoid Notified:: y 06/09/17 17:02 Consult to Mental Health [CONS] Routine Reason For Exam: schizophrenia, 1013 from [facility] consult to:: Mental Health Notified:: Yes Phone number called:: [phone] Was contact made?: Yes If yes, spoke with:: Claudia Time called:: 11:10 Primary care physician: DUMP WORKER Hospitalization Reason for admission: Rectal bleeding, Anemia Condition: Fair Pertinent studies: Colonoscopy; couldn't be done because of poor bowel prep Hospital course: Admission H/P 42-year-old woman with a history of bipolar, schizophrenia was brought to the emergency room from [place] for rectal bleed. She was seen here on the of this month for similar complaint. History is per the nursing project coordinator at bedside, very difficult to obtain a history from the patient, in addition she denies rectal bleed. A review of systems unobtainable. Patient was admitted to the floor for rectal bleeding and anemia. GI was consulted and the plan was to do colonoscopy but bowel prep was poor and couldn' t complete colonoscopy, repeat colonoscopy was unsuccessful because the patient doesn't want take the GoLYTELY and she didn't want to have colonoscopy here. Patient stated she has a GI doctor at [facility] and wants to follow there. Patient has attitude and didn't want to discuss much. Patient denies suicidal ideation. Patient's hemoglobin was 7.8 and she is asymptomatic, no active bleeding of admission. Patient was seen by mental health and recommended no need of inpatient psych admission, come be discharged home from psych point of view. From medical point of view hemoglobin was 7.8 and MCV is 82. Patient is stable to be discharged. Hemodynamically stable. Continue her psych medications. Patient advised to have follow-up with her primary care doctor and had a GI doctor. Disposition: TO HOME OR SELFCARE Time spent for discharge: 31 minutes - Discharge Diagnoses (1) Anemia Status: Chronic Qualifiers: Anemia type: iron deficiency Iron deficiency anemia type: chronic blood loss Qualified Code(s): D50.0 - Iron deficiency anemia secondary to blood loss (chronic) (2) Rectal bleeding Status: Acute (3) Schizophrenia Status: Chronic Qualifiers: Schizophrenia type: unspecified Qualified Code(s): F20.9 - Schizophrenia, unspecified Core Measure Documentation - Palliative Care Palliative Care/ Comfort Measures: Not Applicable - Core Measures Any of the following diagnoses?: none Exam - Physical Exam Narrative exam: Not in cardiopulmonary distress. The patient appeared well nourished and normally developed. Vital signs as documented. Head exam is unremarkable. No scleral icterus . Neck is without jugular venous distension, thyromegaly, or carotid bruits. Lungs are clear to auscultation. Cardiac exam reveals regular rate and Rhythm. First and second heart sounds normal. No murmurs, rubs or gallops. Abdominal exam reveals normal bowel sounds, no masses, no organomegaly and no aortic enlargement. Extremities are nonedematous and both femoral and pedal pulses are normal. MANAGER LOAN: Alert and oriented 3. No focal weakness. Psych: denied sucidal ideation. - Constitutional Vitals: Temp Pulse Resp BP Pulse Ox 98.8 F 108 H 18 109/66 97 06/10/17 16:12 06/10/17 15:51 06/10/17 16:12 06/10/17 15:51 06/10/17 15:52 Plan Activity: no restrictions Weight Bearing Status: Full Weight Bearing Diet: regular Additional Instructions: Per patient patient will follow with her GI doctor in [facility]. Follow up with: PRIMARY MD JACOB [Primary Care Provider] - 7 Days
[2017-06-11] MEDS ORDERED: K-DUR PO ONE ×2 (06:48→10:00)
--- NOTE | 2017-06-11 08:42 | Query- Nutrition ---
Dear ____José Luis Date:____06/11/17 Bullet Assembly Press Operator/CDS:___Leniragini Phone#:____[phone] Exercise your independent professional judgment when responding to query. Questions asked do not imply a particular answer is desired or expected. We greatly appreciate your clarification on this issue. Clinical Documentation States: 42 year old female was admitted on 06/08/17 The discharge summary (Dr. Ordonez) states " 42-year-old woman with a history of bipolar, schizophrenia was brought to the emergency room from [place] for rectal bleed. She was seen here on the of this month for similar complaint. - Discharge Diagnoses (1) Anemia : Anemia type: iron deficiency Iron deficiency anemia type: chronic blood loss (2) Rectal bleeding " Clinical Findings Show: Albumin: 2.3 Please select the most appropriate option 3 [] Mild Malnutrition [] Mild - Moderate Malnutrition [] Moderate - Severe Malnutrition [] Severe Malnutrition Serum Albumin 2.8 to 3.4 g/dl or Pre-albumin 5 to 17 mg/dl1,2 Inadequate nutritional intake1,2,3,4 NPO > 5 days Weight loss: 5% in 1 month or 7.5% in 3 months or 10% in 6 months1, 3,4 BMI 16 to 18.4 or Weight <90% of ideal body weight1,2,3,4 Serum Albumin < 2.8 g/ dl1,2 Lymphocytes < 1500/ L2 Inadequate nutritional intake3, high stress e.g. major trauma, sepsis,pancreatitis, huggins etc. Decubitus ulcers1,2, , skin breakdown2, easy hair pluckability2 Weight <80% standard for height2 Triceps skin fold <3 mm2 Mid-arm muscle circumference <15 cm2 Creatinine-height index <60% standard2 [ ] Cachexia [ ] Emaciated w/Malnutrition [ ] Other: [ ] Unable to determine [ ] Comment/Explanation: Present on Admission: [ ] Yes (Y) [ ] Clinically undeterminable (W) [ ] No ( N) Please also document response in your Progress Notes and/or Discharge Summary and indicate if the condition was present on admission. MTDD
[2017-06-11] MEDS ORDERED: XANAX PO PRN (13:35)
[2017-06-11] MEDS ORDERED: LOPRESSOR PO SCH (15:00)
[2017-06-11 15:48] VITALS: BP 106/66
== END 2017-06-11 18:30 | disposition home or self-care (01) | DRG 377 ==
LOC: ED 13:28 → 3A 23:59
PROVIDERS: ADMIT Internal Medicine; ATTEND Internal Medicine
DX: K62.5 Hemorrhage of anus and rectum (principal); E43 Unspecified severe protein-calorie malnutrition; D50.0 Iron deficiency anemia secondary to blood loss (chronic); F31.9 Bipolar disorder, unspecified; F20.9 Schizophrenia, unspecified; Z88.0 Allergy status to penicillin; Z88.2 Allergy status to sulfonamides; K64.9 Unspecified hemorrhoids
CPT/HCPCS: 36415; 80048; 80053; 81001; 83550; 84703; 85025; 86850; 86900; 86901; 93005; 93010; 99285; J7030